=== PATIENT | male | born 1990 ===

== ENCOUNTER 2020-09-16 20:41 | Emergency (ER) | payer SELFPAY ==
[~2020-09-16] VITALS: Ht 188 cm; Wt 107.8 kg
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
--- NOTE | 2020-09-17 00:34 | NUR ---
PT RESTRAINTS REMOVED, PT A/O X4 AND COROPERTIVE. PT PROVIDED WATER
--- NOTE | 2020-09-17 02:24 | NUR ---
PT STATED "HE HAS NO FAMILY IN TOWN HERE AND HAS NO WAY BACK TO [place] [facility] AND WILL JUST HANG OUT IN [place] TILL HE CAN FIND A RIDE HOME"
--- NOTE | 2020-09-17 02:26 | NUR ---
PT GAVE A PHONE #FOR BILL IN [place] TO CALL [phone]
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
--- NOTE | 2020-09-17 07:15 | NUR ---
REPORT RECEIVED FROM LYNDA CUELLAR. THIS IS A 30 YO M TRANSFERED FROM [place] FOR NEURO CONSULT. PER LYNDA CUELLAR, PT IS CLEARED FOR DC AND HAS BEEN COOPERATIVE SINCE ARRIVAL. PLAN IS FOR PT TO EAT BREAKFAST, RN TO REMOVE SHIELDS AND PROVIDE PT W/ CLOTHES. SW TO ASSIST W/ TRANSPORTATION HOME. PT SLEEPING ON GURNEY W/ SIDE RAILS UPX2, CHEST RISE AND FALL OBSERVED, ARISTIDES.
--- NOTE | 2020-09-17 08:18 | NUR ---
SHIELDS CATH REMOVED. PT PROVIDED W/ BREAKFAST TRAY, PANTS, SOCKS AND A SHIRT. UPDATED ON TRANPORTATION STATUS. PT PLEASANT AND COOPERATIVE. RESP EVEN AND UNLABORED, ARISTIDES.
--- NOTE | 2020-09-17 08:43 | NUR ---
PIV REMOVED. PT RESTING ON GURNEY W/ CALL LIGHT IN REACH AND SIDE RAILS UPX2. RESP EVEN AND UNLABORED, ARISTIDES.
[2020-09-17 08:44] VITALS: BP 143/89
--- NOTE | 2020-09-17 09:02 | NUR ---
PT VERBALIZED UNDERSTANDING OF DC INSTRUCTIONS, AMBULATORY W/ A STEADY GAIT. RESP EVEN AND UNLABORED, NADN. LEFT W/ TRANSPORT SERVICE.
== END 2020-09-17 09:04 | disposition home or self-care (01) ==
LOC: ED 09-17 02:56
DX: F32.9 Major depressive disorder, single episode, unspecified (principal); F23 Brief psychotic disorder; R41.82 Altered mental status, unspecified
CPT/HCPCS: 99285